=== PATIENT | male | born 1940 | race Caucasian/White ===

== ENCOUNTER 2025-05-23 11:08 | Inpatient (IN) | payer MEDICARE, OTHER ==
[2025-05-23] VITALS (10 sets, daily range): BP systolic 99–168; BP diastolic 58–156; TEMP 98–98.1; O2SAT 88–98
[~2025-05-23] VITALS: Ht 165.1 cm; Wt 64.9 kg
[2025-05-23] MEDS: IV NORMAL SALINE 1000 ML BAG IV ONE (11:36)
[2025-05-23 11:40] LABS: PLATELET COUNT (AUTO) 329 K/uL (152-348); RED BLOOD CELL COUNT(AUTO) 4.07 MIL/uL (4.06-5.63); RED CELL DISTRIBUTION WIDTH 14.7 % (12.1-16.2); WHITE BLOOD COUNT (AUTO) 10.5 K/uL (3.6-10.2)
[2025-05-23 11:49] LABS: CREATININE 1.5 mg/dL (0.6-1.3); SODIUM SERUM 143 mmol/L (136-145); UREA NITROGEN, BLOOD 38 mg/dL (7-18)
[2025-05-23] MEDS ORDERED: ROSU10TA2 PO (11:51)
[2025-05-23] MEDS ORDERED: TRAM50TA2 PO (11:51)
[2025-05-23] MEDS ORDERED: ZINC1CAP3 PO (11:51)
[2025-05-23] MEDS ORDERED: MAGN500C4 PO (11:51)
[2025-05-23] MEDS ORDERED: GABA300C PO (11:51)
[2025-05-23] MEDS ORDERED: MULT-1196 PO (11:51)
[2025-05-23] MEDS ORDERED: AMOX500C2 PO (11:51)
[2025-05-23] MEDS ORDERED: LISI5TAB24 PO (11:51)
[2025-05-23] MEDS ORDERED: OXYC5CAP22 PO (11:51)
[2025-05-23] MEDS ORDERED: ACET-2605 PO (11:51)
[2025-05-23] MEDS ORDERED: METO25TA3 PO (11:51)
[2025-05-23] MEDS ORDERED: DAPA10TA PO (11:51)
[2025-05-23] MEDS ORDERED: FEBU80TA PO (11:51)
[2025-05-23] MEDS ORDERED: APIX5TAB4 PO (11:51)
[2025-05-23 11:54] LABS: LYMPHOCYTES % (MANUAL) 8 % (20-40); MONOCYTES % (MANUAL) 17 % (2-10); NEUTROPHILS % (MANUAL) 74 % (42-75); PLATELET ESTIMATE ADEQUATE
[2025-05-23] MEDS ORDERED: IV NORMAL SALINE 250 ML IV ONE (12:42)
[2025-05-23] MEDS ORDERED: SWABABLE VALVE TRANSFER SET EA MC ONE (12:42)
[2025-05-23] MEDS ORDERED: IOHEXOL 300MG/ML 100 ML INFUS..BTL ONE (12:42)
[2025-05-23 13:25] LABS: *BILIRUBIN,URIN NEGATIVE (NEGATIVE); *BLOOD, URINE TRACE (NEGATIVE); *CLARITY,URINE CLEAR (CLEAR); *COLOR,URINE YELLOW (YELLOW); *KETONES,URINE NEGATIVE (NEGATIVE); *PROTEIN,URINE TRACE (NEGATIVE); *UROBILINOGEN,URINE 0.2 E.U./dl (NORMAL); LEUKOCYTE ESTERASE ,URINE NEGATIVE (NEGATIVE); NITRITE, URINE NEGATIVE (NEGATIVE); UGLUCOSE 3+ (NEGATIVE)
[2025-05-23 13:26] LABS: URINE AMORPHOUS URATE FEW /HPF
[2025-05-23] MEDS ORDERED: DEXTROSE 50% 50 ML DISP.SYRIN IV PRN ×2 (14:00→21:00)
[2025-05-23] MEDS ORDERED: ACETAMINOPHEN 325 MG TABLET PO PRN (14:00)
[2025-05-23] MEDS ORDERED: INSULIN REGULAR, HUMAN 1000 UNIT/10 ML VIAL SQ PRN ×2 (14:00→21:00)
[2025-05-23] MEDS ORDERED: REMEDY ESSENTIAL ZINC PASTE 113 GM TP PRN (14:00)
[2025-05-23] MEDS ORDERED: ONDANSETRON 4 MG/2 ML VIAL IV PRN (14:00)
[2025-05-23] MEDS ORDERED: INSULIN REGULAR, HUMAN 300 UNITS/3 ML VIAL SQ PRN ×2 (14:00→21:00)
[2025-05-23] MEDS ORDERED: MAGNESIUM HYDROXIDE 30 ML LIQUID UDC PO PRN (14:00)
[2025-05-23] MEDS ORDERED: OXYCODONE HCL 5 MG TABLET PO PRN (15:15)
[2025-05-23] MEDS: GABAPENTIN 300 MG CAPSULE PO SCH ×2 (19:04→21:00)
[2025-05-23] MEDS: BLOOD SUGAR DIAGNOSTIC 1 EACH STRIP VI SCH ×2 (19:05→22:21)
[2025-05-23] MEDS ORDERED: AMIODARONE HCL 150 MG/3 ML VIAL IV ONE ×2 (20:22→20:26)
[2025-05-23] MEDS: IV 1/2NS 1000 ML 1,000 ML IV PRN (20:25)
[2025-05-23] MEDS: AMIODARONE HCL IV 150 MG in IV DEXTROSE 5% 100 ML IV ONE (21:37)
[2025-05-23] MEDS: TRAMADOL HCL 50 MG TABLET PO PRN (22:13)
[2025-05-23] MEDS: AMIODARONE HCL IV 450 MG in IV DEXTROSE 5% 250 ML IV PRN (22:17)
[2025-05-23] MEDS: APIXABAN 5 MG TABLET PO SCH (22:23)
[2025-05-23] MEDS: OXYCODONE HCL 5 MG TABLET PO PRN (23:55)
[2025-05-24] VITALS (13 sets, daily range): BP systolic 91–138; BP diastolic 53–104; TEMP 98.3–99.3; O2SAT 93–99
[2025-05-24] MEDS ORDERED: AMIODARONE HCL 150 MG/3 ML VIAL IV ONE (04:18)
[2025-05-24 05:14] LABS: PLATELET COUNT (AUTO) 265 K/uL (152-348); RED BLOOD CELL COUNT(AUTO) 3.54 MIL/uL (4.06-5.63); RED CELL DISTRIBUTION WIDTH 14.8 % (12.1-16.2); WHITE BLOOD COUNT (AUTO) 9.5 K/uL (3.6-10.2)
[2025-05-24 05:45] LABS: CREATININE 1.2 mg/dL (0.6-1.3); SODIUM SERUM 141 mmol/L (136-145); UREA NITROGEN, BLOOD 30 mg/dL (7-18)
[2025-05-24 06:03] LABS: LYMPHOCYTES % (MANUAL) 5 % (20-40); MONOCYTES % (MANUAL) 14 % (2-10); NEUTROPHILS % (MANUAL) 81 % (42-75); PLATELET ESTIMATE ADEQUATE
[2025-05-24] MEDS: PANTOPRAZOLE SODIUM 40 MG TABLET.DR PO SCH (08:28)
[2025-05-24] MEDS: ATORVASTATIN 20 MG TABLET PO SCH ×2 (09:00→21:32)
[2025-05-24] MEDS ORDERED: METOPROLOL SUCCINATE XL 25 MG TAB.SR.24H PO SCH (09:00)
[2025-05-24] MEDS ORDERED: GABAPENTIN 300 MG CAPSULE PO SCH (09:00)
[2025-05-24] MEDS ORDERED: MAGNESIUM OXIDE 400 MG TABLET PO SCH (09:00)
[2025-05-24] MEDS: MULTIVIT, IRON, MIN NO. 8, FA TABLET PO SCH (09:40)
[2025-05-24] MEDS: METOPROLOL TARTRATE 25 MG TABLET PO SCH ×2 (09:40→21:33)
[2025-05-24] MEDS: MAGNESIUM OXIDE 400 MG TABLET PO SCH (11:43)
[2025-05-24] MEDS: DAPAGLIFLOZIN PROPANEDIOL 10 MG TABLET PO SCH (12:00)
[2025-05-24] MEDS ORDERED: METOPROLOL TARTRATE 25 MG TABLET PO SCH (21:00)
[2025-05-25 05:29] LABS: PLATELET COUNT (AUTO) 264 K/uL (152-348); RED BLOOD CELL COUNT(AUTO) 3.55 MIL/uL (4.06-5.63); RED CELL DISTRIBUTION WIDTH 14.4 % (12.1-16.2); WHITE BLOOD COUNT (AUTO) 9.8 K/uL (3.6-10.2)
[2025-05-25 05:30] LABS: ASPARTATE AMINOTRANSFERASE 31 U/L (15-37); CREATININE 1.2 mg/dL (0.6-1.3); SODIUM SERUM 141 mmol/L (136-145); TOTAL PROTEIN, SERUM 6.1 g/dL (6.4-8.2); UREA NITROGEN, BLOOD 28 mg/dL (7-18)
[2025-05-25 07:54] VITALS: BP 143/80; TEMP 98.2; O2SAT 95
[2025-05-25] MEDS: PANTOPRAZOLE SODIUM 40 MG VIAL IV SCH (08:56)
[2025-05-25] MEDS: METOPROLOL TARTRATE 50 MG TABLET PO SCH (08:57)
[2025-05-25] MEDS ORDERED: METOPROLOL TARTRATE 25 MG TABLET PO SCH (09:00)
[2025-05-25] MEDS ORDERED: SWABABLE VALVE TRANSFER SET EA MC ONE (09:57)
[2025-05-25] MEDS ORDERED: IV NORMAL SALINE 250 ML IV ONE (09:57)
[2025-05-25] MEDS ORDERED: IOHEXOL 350 100 ML INFUS..BTL ONE (09:57)
[2025-05-25 11:59] VITALS: BP 130/74; TEMP 98.3; O2SAT 98
[2025-05-25 16:16] VITALS: BP 106/65; TEMP 98.9; O2SAT 98
[2025-05-25] MEDS: GLUCERNA SHAKE 237 ML CAN PO SCH (16:27)
[2025-05-25 19:53] VITALS: BP 118/72; TEMP 97.7; O2SAT 98
[2025-05-25] MEDS: MAGNESIUM OXIDE 400 MG TABLET PO SCH (20:48)
[2025-05-26 04:43] VITALS: BP 132/78; TEMP 97.8; O2SAT 98
[2025-05-26 11:41] VITALS: BP 119/47; TEMP 98.3; O2SAT 93
[2025-05-26 15:56] VITALS: BP 96/32; TEMP 97.7; O2SAT 99
[2025-05-26] MEDS ORDERED: OXYC5TAB3 PO (16:27)
[2025-05-26] MEDS ORDERED: Patient May Use Own Med- Md Ok PO (16:27)
[2025-05-26] MEDS ORDERED: METO25TA6 PO (16:27)
[2025-05-26] MEDS ORDERED: ACET-3752 PO (16:27)
[2025-05-26] MEDS ORDERED: PANT40TA49 PO (16:27)
[2025-05-26] MEDS ORDERED: MAGN400T30 PO (16:27)
[2025-05-26] MEDS ORDERED: NUT.237L36 PO (16:27)
[2025-05-26] MEDS ORDERED: TRAM50TA2 PO (16:27)
[2025-05-26] MEDS ORDERED: MAGN400O6 PO (16:27)
[2025-05-26] MEDS ORDERED: MENT113O TP (16:27)
[2025-05-26 16:54] VITALS: BP 122/77; TEMP 97.2; O2SAT 98
[2025-05-27] MEDS ORDERED: APIX5TAB PO (05:42)
[2025-05-27] MEDS ORDERED: LISI5TAB24 PO (05:42)
[2025-05-27] MEDS ORDERED: ZINC1CAP3 PO (05:42)
[2025-05-27] MEDS ORDERED: MULT-1152 PO (05:42)
[2025-05-27] MEDS ORDERED: PANTOPRAZOLE SODIUM 40 MG TABLET.DR PO SCH (07:00)
[2025-05-27] MEDS ORDERED: ACET-3752 PO (09:06)
[2025-05-27] MEDS ORDERED: MAGN400O6 PO (09:08)
[2025-05-27] MEDS ORDERED: z-guard TOP (09:10)
[2025-05-27] MEDS ORDERED: OXYC5TAB3 PO (09:11)
== END 2025-05-26 17:42 | DRG 91 ==
LOC: ER 11:08 → TELE3 17:54 → TELE-TD3 20:32 → ICU IN 20:55 → CCU 21:16 → TELE3 05-25 07:05 → MEDSURG3 05-25 09:35
PROVIDERS: ADMIT Student in an Organized Health Care Education/Training Program; ATTEND Student in an Organized Health Care Education/Training Program
DX: G92.8 Other toxic encephalopathy (principal); N17.0 Acute kidney failure with tubular necrosis; I48.20 Chronic atrial fibrillation, unspecified; G31.84 Mild cognitive impairment of uncertain or unknown etiology; E86.0 Dehydration; K57.30 Diverticulosis of large intestine without perforation or abscess without bleeding; Z79.01 Long term (current) use of anticoagulants; Z95.2 Presence of prosthetic heart valve; M48.061 Spinal stenosis, lumbar region without neurogenic claudication; M51.16 Intervertebral disc disorders with radiculopathy, lumbar region; R53.1 Weakness; N28.9 Disorder of kidney and ureter, unspecified; Z96.652 Presence of left artificial knee joint; R73.9 Hyperglycemia, unspecified; Z85.79 Personal history of other malignant neoplasms of lymphoid, hematopoietic and related tissues; T40.2X5A Adverse effect of other opioids, initial encounter; Y92.009 Unspecified place in unspecified non-institutional (private) residence as the place of occurrence of the external cause; Z79.84 Long term (current) use of oral hypoglycemic drugs; Z79.899 Other long term (current) drug therapy; N40.1 Benign prostatic hyperplasia with lower urinary tract symptoms; N39.498 Other specified urinary incontinence; R97.20 Elevated prostate specific antigen [PSA]
CPT/HCPCS: 36415; 70030-TC; 70450; 71045; 71275; 72131; 83735; 84100; 84153; 84443; 84484; 85025; 93307; A4606; A4663; G0378; J0282; J1815; J2470; J7040; J7050; Q9967

== ENCOUNTER 2025-05-25 12:40 | Inpatient (IN) | payer MEDICARE, OTHER ==
[~2025-05-25] VITALS: Ht 165.1 cm; Wt 64.9 kg
[~2025-05-25 12:40] MED LIST: APIX5TAB4 PO; DAPA10TA PO; FEBU80TA PO; GABA300C PO; LISI5TAB24 PO; MAGN500C4 PO; METO25TA3 PO; MULT-1196 PO; ROSU10TA2 PO; ZINC1CAP3 PO
[2025-05-26 13:10] VITALS: BP 119/47; TEMP 98.3
[2025-05-26 13:59] VITALS: BP 119/47; TEMP 98.3
[2025-05-26] MEDS ORDERED: Patient May Use Own Med- Md Ok PO (16:27)
[2025-05-26] MEDS ORDERED: MAGN400T30 PO (16:27)
[2025-05-26] MEDS ORDERED: OXYC5TAB3 PO (16:27)
[2025-05-26] MEDS ORDERED: PANT40TA49 PO (16:27)
[2025-05-26] MEDS ORDERED: MAGN400O6 PO (16:27)
[2025-05-26] MEDS ORDERED: METO25TA6 PO (16:27)
[2025-05-26] MEDS ORDERED: TRAM50TA2 PO (16:27)
[2025-05-26] MEDS ORDERED: ACET-3752 PO (16:27)
[2025-05-26] MEDS ORDERED: NUT.237L36 PO (16:27)
[2025-05-26] MEDS ORDERED: MENT113O TP (16:27)
[2025-05-26 20:00] VITALS: BP 95/45; TEMP 97.4; O2SAT 96
[2025-05-26] MEDS ORDERED: REMEDY ESSENTIAL ZINC PASTE 113 GM TOP PRN (21:15)
[2025-05-27 00:34] VITALS: BP 141/63; O2SAT 98
[2025-05-27 05:00] VITALS: BP 132/69; TEMP 98.1; O2SAT 94
[2025-05-27] MEDS ORDERED: METOPROLOL TARTRATE 25 MG TABLET PO SCH (05:30)
[2025-05-27] MEDS ORDERED: LISI5TAB24 PO (05:42)
[2025-05-27] MEDS ORDERED: ZINC1CAP3 PO (05:42)
[2025-05-27] MEDS ORDERED: MULT-1152 PO (05:42)
[2025-05-27] MEDS ORDERED: APIX5TAB PO (05:42)
[2025-05-27] MEDS: METOPROLOL TARTRATE 25 MG TABLET PO ONE (05:59)
[2025-05-27] MEDS: ACETAMINOPHEN 325 MG TABLET PO PRN (06:33)
[2025-05-27] MEDS ORDERED: ACET-3752 PO (09:06)
[2025-05-27] MEDS ORDERED: MAGN400O6 PO (09:08)
[2025-05-27] MEDS ORDERED: z-guard TOP (09:10)
[2025-05-27] MEDS ORDERED: OXYC5TAB3 PO (09:11)
[2025-05-27] MEDS ORDERED: TRAM50TA2 PO (09:29)
[2025-05-27] MEDS ORDERED: ACETAMINOPHEN 325 MG TABLET-SA PATIENTS-PAIN ONLY PO PRN (09:45)
[2025-05-27] MEDS ORDERED: MAGNESIUM HYDROXIDE 30 ML LIQUID UDC PO PRN (09:45)
[2025-05-27 10:07] VITALS: BP 105/69; TEMP 97.6; O2SAT 95
[2025-05-27] MEDS: DAPAGLIFLOZIN PROPANEDIOL 10 MG TABLET PO SCH (10:17)
[2025-05-27] MEDS: MULTIVIT, IRON, MIN NO. 8, FA TABLET PO SCH (10:18)
[2025-05-27] MEDS: APIXABAN 5 MG TABLET PO SCH (10:18)
[2025-05-27 11:08] VITALS: BP 133/64; TEMP 98.5; O2SAT 97
[2025-05-27] MEDS: METOPROLOL TARTRATE 25 MG TABLET PO SCH (11:28)
[2025-05-27 14:54] VITALS: BP 100/51; TEMP 98; O2SAT 100
[2025-05-27] MEDS: LISINOPRIL 5 MG TABLET PO SCH (17:52)
[2025-05-27] MEDS: GLUCERNA 1.2 1000ML LIQUID PO SCH (17:53)
[2025-05-27 19:26] VITALS: BP 127/55; TEMP 98.1; O2SAT 99
[2025-05-27] MEDS: MAGNESIUM OXIDE 400 MG TABLET PO SCH (21:04)
[2025-05-27] MEDS: GABAPENTIN 300 MG CAPSULE PO SCH (21:04)
[2025-05-28 05:26] VITALS: BP 115/67; TEMP 98.3; O2SAT 97
[2025-05-28] MEDS: PANTOPRAZOLE SODIUM 40 MG TABLET.DR PO SCH (06:25)
[2025-05-28 07:47] VITALS: BP 132/66; TEMP 99; O2SAT 97
[2025-05-28] MEDS: LIDOCAINE 5% PATCH TD SCH (08:43)
[2025-05-28 11:12] VITALS: BP 96/53; TEMP 98.7; O2SAT 100
[2025-05-28 15:39] VITALS: BP 99/62; TEMP 98.2; O2SAT 97
[2025-05-28 19:30] VITALS: BP 96/63; TEMP 97.7; O2SAT 96
[2025-05-29] MEDS: TRAMADOL HCL 50 MG TABLET PO PRN (03:20)
[2025-05-29 07:30] LABS: PLATELET COUNT (AUTO) 246 K/uL (152-348); RED BLOOD CELL COUNT(AUTO) 3.21 MIL/uL (4.06-5.63); RED CELL DISTRIBUTION WIDTH 14.8 % (12.1-16.2); WHITE BLOOD COUNT (AUTO) 8.1 K/uL (3.6-10.2)
[2025-05-29 07:48] LABS: ASPARTATE AMINOTRANSFERASE 25 U/L (15-37); CREATININE 1.1 mg/dL (0.6-1.3); SODIUM SERUM 144 mmol/L (136-145); TOTAL PROTEIN, SERUM 5.8 g/dL (6.4-8.2); UREA NITROGEN, BLOOD 27 mg/dL (7-18)
[2025-05-29 08:00] VITALS: BP 141/69; TEMP 97.7; O2SAT 99
[2025-05-29] MEDS: ZINC SULFATE 220 MG CAPSULE PO SCH (08:44)
[2025-05-29 13:17] LABS: BAND % (MANUAL) 4 % (0-10); LYMPHOCYTES % (MANUAL) 13 % (20-40); MONOCYTES % (MANUAL) 15 % (2-10); NEUTROPHILS % (MANUAL) 68 % (42-75); PLATELET ESTIMATE ADEQUATE
[2025-05-29 16:14] VITALS: BP 128/74; TEMP 98.8; O2SAT 98
[2025-05-29 20:00] VITALS: BP 121/64; TEMP 97.9; O2SAT 99
[2025-05-30 06:00] VITALS: BP 129/73; TEMP 99.5; O2SAT 98
[2025-05-30 07:47] VITALS: BP 137/73; TEMP 99.7; O2SAT 98
[2025-05-30] MEDS ORDERED: SIMETHICONE 80 MG TAB.CHEW PO PRN (13:00)
[2025-05-30 16:00] VITALS: BP 110/63; TEMP 97.5; O2SAT 97
[2025-05-30 21:22] VITALS: BP 106/63; TEMP 98.8; O2SAT 98
[2025-05-31 06:09] VITALS: BP 144/78; TEMP 98.7; O2SAT 97
[2025-05-31 06:49] LABS: PLATELET COUNT (AUTO) 238 K/uL (152-348); RED BLOOD CELL COUNT(AUTO) 3.63 MIL/uL (4.06-5.63); RED CELL DISTRIBUTION WIDTH 15.2 % (12.1-16.2); WHITE BLOOD COUNT (AUTO) 10.9 K/uL (3.6-10.2)
[2025-05-31 07:13] LABS: ASPARTATE AMINOTRANSFERASE 24 U/L (15-37); CREATININE 1.0 mg/dL (0.6-1.3); SODIUM SERUM 144 mmol/L (136-145); TOTAL PROTEIN, SERUM 6.6 g/dL (6.4-8.2); UREA NITROGEN, BLOOD 23 mg/dL (7-18)
[2025-05-31 07:48] VITALS: BP 143/77; TEMP 98.7; O2SAT 98
[2025-05-31] MEDS: LIDOCAINE 5% PATCH TD SCH (08:46)
[2025-05-31] MEDS: POTASSIUM CHLORIDE 20 MEQ TAB.PRT.SR PO ONE (11:16)
[2025-05-31 16:00] VITALS: BP 125/71; TEMP 98.3; O2SAT 96
[2025-05-31 19:20] VITALS: BP 112/57; TEMP 97.5; O2SAT 97
[2025-06-01] MEDS: DOCUSATE SODIUM 100 MG CAPSULE PO PRN (06:35)
[2025-06-01 06:37] VITALS: BP 126/74; TEMP 97.6; O2SAT 97
[2025-06-01 07:50] LABS: CREATININE 1.1 mg/dL (0.6-1.3); SODIUM SERUM 145 mmol/L (136-145); UREA NITROGEN, BLOOD 26 mg/dL (7-18)
[2025-06-01 07:58] VITALS: BP 129/77; TEMP 98.7; O2SAT 95
[2025-06-01 16:00] VITALS: BP 146/70; TEMP 98.8; O2SAT 96
[2025-06-01 19:48] VITALS: BP 110/64; TEMP 98.3; O2SAT 97
[2025-06-02 07:52] VITALS: BP 140/62; TEMP 98.7; O2SAT 98
[2025-06-02 16:00] VITALS: BP 108/63; TEMP 98.5; O2SAT 98
[2025-06-02 20:00] VITALS: BP 114/52; TEMP 98.1; O2SAT 95
[2025-06-03 06:17] VITALS: BP 119/81; TEMP 97.7; O2SAT 96
[2025-06-03 07:07] LABS: CREATININE 1.0 mg/dL (0.6-1.3); SODIUM SERUM 147 mmol/L (136-145); UREA NITROGEN, BLOOD 26 mg/dL (7-18)
[2025-06-03 07:59] VITALS: BP 113/78; TEMP 97.5; O2SAT 94
[2025-06-03 15:17] VITALS: BP 108/59; TEMP 97.8; O2SAT 99
[2025-06-03 17:08] VITALS: BP 126/64; TEMP 97.9; O2SAT 100
[2025-06-03 20:00] VITALS: BP 99/64; TEMP 97.5; O2SAT 98
[2025-06-04 06:00] VITALS: BP 143/70; TEMP 97.6; O2SAT 97
[2025-06-04 09:19] VITALS: BP 136/74; TEMP 98; O2SAT 96
[2025-06-04 16:31] VITALS: BP 115/59; TEMP 98.1; O2SAT 96
[2025-06-04 20:32] VITALS: BP 100/59; TEMP 98.4; O2SAT 100
[2025-06-05] MEDS: OXYCODONE HCL 5 MG TABLET PO PRN (01:50)
[2025-06-05 07:48] VITALS: BP 116/70; TEMP 97.8; O2SAT 97
[2025-06-05 15:57] VITALS: BP 129/69; TEMP 97.2; O2SAT 97
[2025-06-05 21:59] VITALS: BP 107/62; TEMP 98.2; O2SAT 98
[2025-06-06 06:33] VITALS: BP 115/76; TEMP 98.2; O2SAT 98
[2025-06-06 08:00] VITALS: BP 139/77; TEMP 98.3; O2SAT 98
[2025-06-06 09:07] VITALS: BP 139/77
== END 2025-06-06 15:50 | disposition home health service (06) | DRG 947 ==
PROVIDERS: ADMIT Physical Medicine & Rehabilitation Pain Medicine; ATTEND Physical Medicine & Rehabilitation Pain Medicine
DX: R53.1 Weakness (principal); G92.8 Other toxic encephalopathy; N17.0 Acute kidney failure with tubular necrosis; I48.20 Chronic atrial fibrillation, unspecified; D64.9 Anemia, unspecified; D72.829 Elevated white blood cell count, unspecified; G93.89 Other specified disorders of brain; R65.10 Systemic inflammatory response syndrome (SIRS) of non-infectious origin without acute organ dysfunction; Z79.01 Long term (current) use of anticoagulants; I10 Essential (primary) hypertension; I69.398 Other sequelae of cerebral infarction; Z95.2 Presence of prosthetic heart valve; Z96.652 Presence of left artificial knee joint; E78.5 Hyperlipidemia, unspecified; M48.061 Spinal stenosis, lumbar region without neurogenic claudication; M54.10 Radiculopathy, site unspecified; M89.8X9 Other specified disorders of bone, unspecified site; N28.1 Cyst of kidney, acquired; N40.0 Benign prostatic hyperplasia without lower urinary tract symptoms; R32 Unspecified urinary incontinence; M19.90 Unspecified osteoarthritis, unspecified site
CPT/HCPCS: 36415; 70030-TC; 83735; 84100; 85025; 97535-GO-CO